=== PATIENT | female | born 1945 | race Caucasian/White ===

== ENCOUNTER 2018-10-01 07:43 | Inpatient (IN) | payer MEDICARE, OTHER ==
[2018-09-24 11:37] LABS: BASOPHILS % (AUTO) 0.3 % (0-1); EOSINOPHILS % (AUTO) 0.2 % (0-6); LYMPHOCYTES # (AUTO) 0.6 X10'3 (1.1-4.8); MEAN CORPUSCULAR HEMOGLOBIN 29.6 PG (27.0-31.0); MEAN CORPUSCULAR HGB CONC 33.7 % (33.0-36.5); MEAN PLATELET VOLUME 7.5 FL (7.4-10.4); MONOCYTES # (AUTO) 0.5 X10'3 (0-0.9); NEUTROPHILS # (AUTO) 3.8 X10'3 (1.8-7.7); NEUTROPHILS % (AUTO) 76.5 % (42-75); PRE OP HEMATOCRIT 38.9 % (35.0-45.0); PRE OP HEMOGLOBIN 13.1 g/dL (12.0-16.0); PRE OP PLATELET COUNT 210 X10'3 (140-440); RED BLOOD COUNT 4.42 X10'6 (4.20-5.60); RED CELL DISTRIBUTION WIDTH 14.4 % (11.5-14.5)
[2018-09-24 11:52] LABS: PRE OP PROTIME 10.4 SECONDS (9.0-12.0)
[2018-09-24 11:54] LABS: CLARITY,URINE CLEAR (Clear); COLOR,URINE YELLOW (Yellow); GLUCOSE, URINE NEGATIVE (Neg); KETONES,URINE NEGATIVE (Neg); LEUKOCYTE ESTERASE ,URINE NEGATIVE (Neg); NITRITES, URINE NEGATIVE (Neg); OCCULT BLOOD,URINE SMALL (Neg); PH,URINE 6.5 (4.8-8.0); PROTEIN,URINE NEGATIVE (Neg); UROBILINOGEN,URINE 0.2 E.U/dL (0.2-1.0)
[2018-09-24 12:00] LABS: UA COLLECTION TYPE CLN CATCH MIDSTREAM
[2018-09-24 12:00] LABS: ALBUMIN 3.8 G/DL (3.4-5.0); ALBUMIN/GLOBULIN RATIO 1.1 (1.1-1.5); ALKALINE PHOSPHATASE 81 IU/L (46-116); BLOOD UREA NITROGEN 11 MG/DL (7-18); BUN/CREATININE RATIO 17.5 (6.6-38.0); CALCIUM 9.2 MG/DL (8.5-10.1); CHLORIDE 96 MMOL/L (99-107); CREATININE 0.63 MG/DL (0.40-0.90); PRE OP ALT 21 U/L (30-65); PRE OP ANION GAP 10 (8-16); PRE OP AST 20 U/L (10-37); PRE OP BILIRUB, TOTAL 1.3 MG/DL (0.0-1.0); PRE OP GLUCOSE 118 MG/DL (70-104); PRE OP POTASSIUM 3.5 MMOL/L (3.4-5.1); PRE OP SODIUM 134 MMOL/L (135-145); TOTAL CARBON DIOXIDE 28.4 MMOL/L (24-32); TOTAL PROTEIN 7.2 G/DL (6.4-8.2); eGFR > 90 ML/MIN
[2018-09-24 12:01] LABS: BACTERIA,URINE FEW /HPF (Neg); SQUAMOUS EPITHELIAL CELL,UR FEW /LPF (FEW)
[2018-09-24 12:02] LABS: WBC,URINE 0-4 /HPF (0-4)
[2018-10-01] VITALS (20 sets, daily range): BP systolic 102–167; BP diastolic 48–82
[~2018-10-01] VITALS: Ht 165.1 cm; Wt 91.7 kg
[~2018-10-01 07:43] MED LIST: ACET-812 PO; ATOR20TA PO; CHOL100046 PO; DOCUMENT DATE & TIME OF BETA-BLOCKER PO ONE; DULO-31 PO; HYDR25TA4 PO; HYDROmorphone 1 mg/ml syringe IV PRN; HYDROmorphone inj. 0.5 MG/0.5 ML DISP.SYRIN IV PRN; LEVO50TA8 PO; METO50TA17 PO; acetaminophen 325mg tablet PO ONE; acetaminophen 325mg tablet PO PRN; bisacodyl 10mg suppository rectal RC PRN; clindamycin 600mg/D5W 50ml 50 ML IV ONE; diphenhydrAMINE 25mg capsule PO PRN; famotidine 20mg tablet PO ONE; gabapentin 300mg capsule PO ONE; magnesium hydroxide 30ml (MOM) UD suspension PO PRN; metoclopramide 5 mg/ml inj IV ONE; oxyCODONE IR 5mg (immed. release) tablet PO PRN; oxyCODONE SR 10mg (sust. release) tab -2 tabs (20mg) PO ONE; ringers solution, lacted 1,000 ML IV SCH; tranexamic acid inj. 1,000 MG in normal saline 100 ML IV ONE; vancomycin inj 1,500 MG in normal saline 300ml IV soln IV ONE
[2018-10-01] MEDS: acetaminophen 325mg tablet PO SCH ×3 (08:00→21:02)
[2018-10-01] MEDS: celeCOXIB 100mg capsule PO ONE ×2 (08:27→08:36)
--- NOTE | 2018-10-01 08:33 | NUR ---
OXYCONTIN HELD DUE TO PT AGE OVER 70
[2018-10-01] MEDS ORDERED: ROPIVAcaine inj 250 MG, ketorolac tromethamine inj. 15 MG, CloNIDine/PF inj 80 MCG, epi... IU ONE ×5 (09:50)
[2018-10-01] MEDS ORDERED: vancomycin 1,000mg inj ONE (09:55)
[2018-10-01] MEDS ORDERED: sevoflurane 250ml liquid IH ONE (10:07)
[2018-10-01] MEDS ORDERED: LIDOcaine 1%/PF 5ML 10 MG/ML VIAL ONE (10:07)
[2018-10-01] MEDS ORDERED: rocuronium 10mg/ml inj IV ONE (10:11)
[2018-10-01] MEDS ORDERED: propofol inj 20 ML IV ONE (10:11)
[2018-10-01] MEDS ORDERED: glycopyrrolate 0.2mg/ml inj ONE ×2 (10:11→12:39)
[2018-10-01] MEDS ORDERED: fentaNYL /PF 50mcg/ml 5ml ampule ONE (10:11)
[2018-10-01] MEDS ORDERED: ROPIVAcaine 0.5% (5mg/ml) 30ml vial ONE (10:56)
[2018-10-01] MEDS ORDERED: ringers solution, lacted 1,000 ML IV SCH (11:03)
[2018-10-01] MEDS ORDERED: ondansetron/PF 4mg/2ml inj IV PRN (11:05)
[2018-10-01] MEDS ORDERED: HYDROmorphone inj. 0.5 MG/0.5 ML DISP.SYRIN IV PRN ×2 (11:05)
[2018-10-01] MEDS ORDERED: morphine 4 MG/ML inj SYRINge IV PRN (11:05)
[2018-10-01] MEDS ORDERED: ondansetron/PF 4mg/2ml inj ONE (11:43)
[2018-10-01] MEDS ORDERED: dexamethasone sod phosphate 4mg/ml inj. ONE (11:43)
--- NOTE | 2018-10-01 12:25 | NUR ---
Received from OR via BED, accompanied by Anesthesiologist DR PANDYA and report given by Anesthesiologist. PT DROWSY, DENIES PAIN, RIGHT KNEE W/DRSG, LEG WRAP, ICE PACK, MAGDA DRAIN, RIGHT THIGH W/ADDUCTOR CANAL CATHETER ATTACHED TO ROPIVACAINE PAIN INFUSION. Addendum: 10/01/18 at 1309 by Jocelyn Slater RN Amended: Links added.
[2018-10-01] MEDS ORDERED: neostigmine methylsulfate 1 MG/ML 10ml vial ONE (12:39)
[2018-10-01] MEDS: ROPIVACAINE HCL/PF PAIN PUMP 400 ML IJ SCH (12:48)
--- NOTE | 2018-10-01 14:05 | NUR ---
Report called to receiving nurse DC AWAD. Transferred via BED, ALL Belongings SENT TO ROOM 4016, PT REMAINS SLEEPY BUT IS APPROPRIATE, PT TRANSFERRED ON TELE #11 IN STABLE CONDITION, SIDE RAILS UP X 2, CALL LIGHT GIVEN, BLL, PTS AT BEDSIDE, NOTIFIED RECEIVING RN OF PTS ARRIVAL. Special Issues communicated to receiving nurse. YES. Addendum: 10/01/18 at 1421 by Jocelyn Slater RN Amended: Links added.
[2018-10-01] MEDS: ketorolac tromethamine 15mg/ml inj. IV SCH ×2 (14:54→20:59)
[2018-10-01] MEDS: gabapentin 300mg capsule PO SCH ×2 (15:00→21:01)
[2018-10-01] MEDS ORDERED: NORMAL SALINE IV ONE (15:30)
[2018-10-01] MEDS ORDERED: TRANEXAMIC ACID IV ONE (15:30)
[2018-10-01] MEDS ORDERED: cefazolin/dext.iso 2gm/100ml 100 ML IV SCH (16:00)
[2018-10-01] MEDS: oxyCODONE IR 5mg (immed. release) tablet PO PRN (16:04)
[2018-10-01] MEDS: potassium cl 20mEq in 1/2 NS 1,000 ML IV SCH ×2 (16:58→22:30)
[2018-10-01] MEDS: clindamycin-Cleocin 900mg/D5W 50 ML IV SCH ×2 (17:09→23:57)
--- NOTE | 2018-10-01 18:29 | NUR ---
Patient in room ORTHO 4016. I have received report from RITESH Schaffer and had the opportunity to ask questions and assume patient care.
[2018-10-01] MEDS: sennosides 8.6mg tablet PO SCH (21:01)
[2018-10-01] MEDS: ascorbic acid 500mg tablet PO SCH (21:01)
[2018-10-01] MEDS: metoprolol tartrate 50mg tablet PO SCH (21:01)
[2018-10-01] MEDS: atorvastatin 20mg tablet PO SCH (21:02)
[2018-10-02 02:00] VITALS: BP 114/62
[2018-10-02] MEDS: ketorolac tromethamine 15mg/ml inj. IV SCH ×3 (02:33→14:00)
[2018-10-02] MEDS: acetaminophen 325mg tablet PO SCH ×4 (02:33→19:57)
[2018-10-02] MEDS: potassium cl 20mEq in 1/2 NS 1,000 ML IV SCH ×3 (03:03→18:50)
[2018-10-02 06:00] VITALS: BP 134/65
[2018-10-02 06:05] LABS: BASOPHILS % (AUTO) 0 % (0-1); EOSINOPHILS # (AUTO) 0.1 X10'3 (0-0.9); EOSINOPHILS % (AUTO) 0.6 % (0-6); HEMATOCRIT 32.7 % (35.0-45.0); HEMOGLOBIN 11.1 g/dl (12.0-16.0); MEAN CORPUSCULAR HEMOGLOBIN 29.9 PG (27.0-31.0); MEAN CORPUSCULAR VOLUME 87.8 FL (78-98); MEAN PLATELET VOLUME 7.7 FL (7.4-10.4); MONOCYTES # (AUTO) 0.6 X10'3 (0-0.9); MONOCYTES % (AUTO) 7.2 % (2-12); NEUTROPHILS # (AUTO) 6.8 X10'3 (1.8-7.7); NEUTROPHILS % (AUTO) 80.2 % (42-75); PLATELET COUNT 186 X10'3 (140-440); RED BLOOD COUNT 3.73 X10'6 (4.20-5.60); RED CELL DISTRIBUTION WIDTH 13.8 % (11.5-14.5); WHITE BLOOD COUNT 8.5 X10'3 (4.5-11.0)
--- NOTE | 2018-10-02 06:27 | NUR ---
Problems reprioritized. Patient report given, questions answered & plan of care reviewed with RITESH Sy.
[2018-10-02 06:29] LABS: ANION GAP 9 (8-16); CHLORIDE 102 MMOL/L (99-107); POTASSIUM 3.3 MMOL/L (3.5-5.1); SODIUM 137 MMOL/L (135-145); TOTAL CARBON DIOXIDE 25.8 MMOL/L (24-32)
[2018-10-02] MEDS: metoprolol tartrate 50mg tablet PO SCH ×2 (08:00→19:59)
[2018-10-02] MEDS: HYDROchlorothiazide 25mg tablet PO SCH (08:26)
[2018-10-02] MEDS: levoTHYROXINE 25mcg tablet PO SCH (08:26)
[2018-10-02] MEDS: vitamin D (cholecalciferol) 1,000 unit tablet PO SCH (08:26)
[2018-10-02] MEDS: duloxetine 30mg CAPSULE.DR PO SCH (08:31)
[2018-10-02] MEDS: ascorbic acid 500mg tablet PO SCH ×2 (08:31→19:57)
[2018-10-02] MEDS: multivitamins, therapeutics tablet PO SCH (08:32)
[2018-10-02] MEDS: gabapentin 300mg capsule PO SCH ×3 (08:32→19:58)
[2018-10-02] MEDS: enoxaparin 40mg/0.4ml syringe SQ SCH (08:33)
[2018-10-02 10:00] VITALS: BP 112/60
--- NOTE | 2018-10-02 12:30 | NUR ---
Joint replacement consult: Pt seen by NISSA for written/verbal high protein ed. NISSA reviewed high protein needs for wound healing, immune strength, high protein foods, and protein supplementation options. NISSA contact information provided in case of further questions. Declines additional proteins at this time. Addendum: 10/02/18 at [address] Amended: Links added.
[2018-10-02 18:00] VITALS: BP 132/67
--- NOTE | 2018-10-02 18:13 | NUR ---
Report to Sandrine AWAD
--- NOTE | 2018-10-02 18:15 | NUR ---
Patient in room ORTHO 4016. I have received report from RITESH Sy and had the opportunity to ask questions and assume patient care.
[2018-10-02] MEDS: atorvastatin 20mg tablet PO SCH (19:58)
[2018-10-02] MEDS: sennosides 8.6mg tablet PO SCH (19:58)
[2018-10-02] MEDS ORDERED: celeCOXIB 100mg capsule PO SCH (20:00)
[2018-10-02] MEDS: ROPIVACAINE HCL/PF PAIN PUMP 400 ML IJ SCH (20:11)
[2018-10-02 22:00] VITALS: BP 119/59
[2018-10-03] MEDS: ROPIVACAINE HCL/PF PAIN PUMP 400 ML IJ SCH (00:21)
[2018-10-03] MEDS: acetaminophen 325mg tablet PO SCH (02:00)
[2018-10-03 06:00] VITALS: BP 124/65
[2018-10-03] MEDS: potassium cl 20mEq in 1/2 NS 1,000 ML IV SCH (06:30)
--- NOTE | 2018-10-03 06:31 | NUR ---
Problems reprioritized. Patient report given, questions answered & plan of care reviewed with RITESH Girard.
[2018-10-03] MEDS: oxyCODONE IR 5mg (immed. release) tablet PO PRN ×2 (07:20→20:23)
--- NOTE | 2018-10-03 07:29 | NUR ---
PT handed me a 325mg tylenol found on floor at patient bedside. communicated to Era AWAD and she disposed. LWSN
[2018-10-03 07:53] LABS: BASOPHILS % (AUTO) 0.3 % (0-1); EOSINOPHILS % (AUTO) 0.8 % (0-6); HEMATOCRIT 31.3 % (35.0-45.0); HEMOGLOBIN 10.6 g/dl (12.0-16.0); LYMPHOCYTES # (AUTO) 1.2 X10'3 (1.1-4.8); LYMPHOCYTES % (AUTO) 19.9 % (21-51); MEAN CORPUSCULAR HEMOGLOBIN 29.8 PG (27.0-31.0); MEAN CORPUSCULAR HGB CONC 33.9 % (33.0-36.5); MEAN CORPUSCULAR VOLUME 87.8 FL (78-98); MEAN PLATELET VOLUME 7.6 FL (7.4-10.4); MONOCYTES # (AUTO) 0.8 X10'3 (0-0.9); MONOCYTES % (AUTO) 13.4 % (2-12); NEUTROPHILS # (AUTO) 3.9 X10'3 (1.8-7.7); NEUTROPHILS % (AUTO) 65.6 % (42-75); PLATELET COUNT 183 X10'3 (140-440); RED BLOOD COUNT 3.56 X10'6 (4.20-5.60); RED CELL DISTRIBUTION WIDTH 14.4 % (11.5-14.5)
[2018-10-03 08:06] LABS: ALANINE AMINOTRANSFERASE 15 U/L (12-78); ALBUMIN 2.5 G/DL (3.4-5.0); ALBUMIN/GLOBULIN RATIO 0.8 (1.1-1.5); ALKALINE PHOSPHATASE 56 IU/L (46-116); ANION GAP 9 (8-16); ASPARTATE AMINO TRANSFERASE 14 U/L (10-37); BILIRUBIN,TOTAL 0.8 MG/DL (0.1-1.0); BLOOD UREA NITROGEN 9 MG/DL (7-18); BUN/CREATININE RATIO 14.8 (6.6-38.0); CALCIUM 8.1 MG/DL (8.5-10.1); CHLORIDE 101 MMOL/L (99-107); CREATININE 0.61 MG/DL (0.40-0.90); GLUCOSE 98 MG/DL (70-104); POTASSIUM 3.1 MMOL/L (3.5-5.1); SODIUM 137 MMOL/L (135-145); TOTAL CARBON DIOXIDE 26.9 MMOL/L (24-32); TOTAL PROTEIN 5.5 G/DL (6.4-8.2); eGFR > 90 ML/MIN
[2018-10-03] MEDS: enoxaparin 40mg/0.4ml syringe SQ SCH (08:14)
[2018-10-03] MEDS: duloxetine 30mg CAPSULE.DR PO SCH (08:17)
[2018-10-03] MEDS: levoTHYROXINE 25mcg tablet PO SCH (08:18)
[2018-10-03] MEDS: vitamin D (cholecalciferol) 1,000 unit tablet PO SCH (08:18)
[2018-10-03] MEDS: ascorbic acid 500mg tablet PO SCH ×2 (08:18→20:17)
[2018-10-03] MEDS: gabapentin 300mg capsule PO SCH ×3 (08:18→20:17)
[2018-10-03] MEDS: multivitamins, therapeutics tablet PO SCH (08:18)
[2018-10-03] MEDS: metoprolol tartrate 50mg tablet PO SCH ×2 (08:38→20:18)
[2018-10-03] MEDS ORDERED: magnesium Cl slow-release 64mg tablet PO PRN (09:05)
[2018-10-03] MEDS ORDERED: magnesium 4gm in 100ml NS 100 ML IV PRN (09:05)
[2018-10-03] MEDS ORDERED: potassium Cl 40MEQ/NS 500ml 500 ML IV PRN ×2 (09:05)
[2018-10-03] MEDS ORDERED: magnesium 2GM in 50ml NS 50 ML IV PRN (09:05)
[2018-10-03] MEDS ORDERED: potassium Cl 20 mEq SR tablet PO PRN (09:05)
[2018-10-03 10:00] VITALS: BP 124/68
[2018-10-03 10:20] LABS: MAGNESIUM 1.6 MG/DL (1.5-2.4); POTASSIUM 3.1 MMOL/L (3.5-5.1)
--- NOTE | 2018-10-03 10:35 | NUR ---
Pt was educated on lovanox injection. She was able to inject herself without complications. She is familiar with the injections since she used them before with her shoulder surgery
[2018-10-03] MEDS: HYDROchlorothiazide 25mg tablet PO SCH (10:39)
[2018-10-03] MEDS: potassium Cl 20 mEq SR tablet PO PRN ×3 (10:41→20:17)
[2018-10-03] MEDS: ondansetron/PF 4mg/2ml inj IV PRN (13:55)
[2018-10-03 18:00] VITALS: BP 126/66
--- NOTE | 2018-10-03 18:00 | NUR ---
Patient in room ORTHO 4016. I have received report from RITESH Girard and had the opportunity to ask questions and assume patient care.
--- NOTE | 2018-10-03 18:57 | NUR ---
I agree with all meds, assessments and interventions performed by Kristina Guerrero, student RN
[2018-10-03] MEDS: sennosides 8.6mg tablet PO SCH (20:17)
[2018-10-03] MEDS: atorvastatin 20mg tablet PO SCH (20:18)
[2018-10-03 22:00] VITALS: BP 112/56
[2018-10-04] MEDS: oxyCODONE IR 5mg (immed. release) tablet PO PRN ×2 (05:15→13:00)
[2018-10-04 06:00] VITALS: BP 125/68
--- NOTE | 2018-10-04 06:00 | NUR ---
Patient in room ORTHO 4016. I have received report from Sandrine AWAD and had the opportunity to ask questions and assume patient care.
--- NOTE | 2018-10-04 06:14 | NUR ---
Problems reprioritized. Patient report given, questions answered & plan of care reviewed with RITESH Ansari.
[2018-10-04 07:46] LABS: BASOPHILS % (AUTO) 0.2 % (0-1); EOSINOPHILS % (AUTO) 0.2 % (0-6); HEMATOCRIT 34.4 % (35.0-45.0); HEMOGLOBIN 11.5 g/dl (12.0-16.0); LYMPHOCYTES # (AUTO) 1.4 X10'3 (1.1-4.8); LYMPHOCYTES % (AUTO) 19.3 % (21-51); MEAN CORPUSCULAR HEMOGLOBIN 29.2 PG (27.0-31.0); MEAN CORPUSCULAR HGB CONC 33.6 % (33.0-36.5); MEAN CORPUSCULAR VOLUME 87.1 FL (78-98); MEAN PLATELET VOLUME 7.8 FL (7.4-10.4); MONOCYTES # (AUTO) 1.2 X10'3 (0-0.9); MONOCYTES % (AUTO) 16.1 % (2-12); NEUTROPHILS # (AUTO) 4.8 X10'3 (1.8-7.7); NEUTROPHILS % (AUTO) 64.2 % (42-75); PLATELET COUNT 248 X10'3 (140-440); RED BLOOD COUNT 3.95 X10'6 (4.20-5.60); RED CELL DISTRIBUTION WIDTH 14.3 % (11.5-14.5); WHITE BLOOD COUNT 7.5 X10'3 (4.5-11.0)
[2018-10-04 07:55] LABS: MAGNESIUM 1.8 MG/DL (1.5-2.4); POTASSIUM 3.4 MMOL/L (3.5-5.1)
[2018-10-04] MEDS: levoTHYROXINE 25mcg tablet PO SCH (08:04)
[2018-10-04] MEDS: ondansetron/PF 4mg/2ml inj IV PRN (08:04)
[2018-10-04] MEDS: gabapentin 300mg capsule PO SCH ×2 (08:04→12:58)
[2018-10-04] MEDS: duloxetine 30mg CAPSULE.DR PO SCH (08:04)
[2018-10-04] MEDS: multivitamins, therapeutics tablet PO SCH (08:04)
[2018-10-04] MEDS: ascorbic acid 500mg tablet PO SCH (08:04)
[2018-10-04] MEDS: enoxaparin 40mg/0.4ml syringe SQ SCH (08:04)
[2018-10-04] MEDS: vitamin D (cholecalciferol) 1,000 unit tablet PO SCH (08:04)
[2018-10-04] MEDS: metoprolol tartrate 50mg tablet PO SCH (08:08)
[2018-10-04] MEDS: HYDROchlorothiazide 25mg tablet PO SCH (08:08)
[2018-10-04 10:00] VITALS: BP 98/47
[2018-10-04] MEDS: potassium Cl 20 mEq SR tablet PO PRN (11:23)
--- NOTE | 2018-10-04 17:32 | NUR ---
Patient stable for transfer to [facility] today. All belongings sent with patient. Patient report called to Candice at [facility]
== END 2018-10-04 14:50 | DRG 470 ==
LOC: PAS IN 07:43 → EDSTATUS 11:30 → ORTHO 4S 14:00
PROVIDERS: ADMIT Orthopaedic Surgery; ATTEND Orthopaedic Surgery
PROC: 5A09357 Assistance with Respiratory Ventilation, Less than 24 Consecutive Hours, Continuous Positive Airway Pressure (ICD-10-PCS; 2018-10-01)
PROC: 3E0T3BZ Introduction of Anesthetic Agent into Peripheral Nerves and Plexi, Percutaneous Approach (ICD-10-PCS; 2018-10-01)
PROC: 0SRC0J9 Replacement of Right Knee Joint with Synthetic Substitute, Cemented, Open Approach (ICD-10-PCS; principal; 2018-10-01 10:07)
PROC: 5A09357 Assistance with Respiratory Ventilation, Less than 24 Consecutive Hours, Continuous Positive Airway Pressure (ICD-10-PCS; 2018-10-03)
PROC: 5A09357 Assistance with Respiratory Ventilation, Less than 24 Consecutive Hours, Continuous Positive Airway Pressure (ICD-10-PCS; 2018-10-04)
DX: M17.11 Unilateral primary osteoarthritis, right knee (principal); D62 Acute posthemorrhagic anemia; E03.9 Hypothyroidism, unspecified; E78.5 Hyperlipidemia, unspecified; Z96.612 Presence of left artificial shoulder joint; G47.30 Sleep apnea, unspecified; I10 Essential (primary) hypertension; M81.0 Age-related osteoporosis without current pathological fracture; F32.9 Major depressive disorder, single episode, unspecified; E66.9 Obesity, unspecified; Z90.12 Acquired absence of left breast and nipple; Z98.51 Tubal ligation status; Z88.0 Allergy status to penicillin; Z88.6 Allergy status to analgesic agent; Z88.8 Allergy status to other drugs, medicaments and biological substances; Z79.899 Other long term (current) drug therapy; Z79.890 Hormone replacement therapy; Z79.82 Long term (current) use of aspirin; Z87.891 Personal history of nicotine dependence; Z85.3 Personal history of malignant neoplasm of breast; Z68.33 Body mass index [BMI] 33.0-33.9, adult
CPT/HCPCS: 36415; 71046; 73560; 80051; 80053; 81001; 82948; 83735; 84132; 84443; 85025; 85610; 85730; 86885; 86900; 86901; 87070; 93005; 97110; 97116; 97162; 97530; A6455; A7000; C1713; C1758; C1776; G0378; J0690; J1100; J1650; J1885; J2001; J2405; J2704; J2710; J2765; J2795; J3010; J3370; J3490; J7030; J7120

== ENCOUNTER 2019-04-21 09:12 | Day surgery (SDC) | payer MEDICARE, OTHER ==
[~2019-04-21] VITALS: Ht 165.1 cm; Wt 98.6 kg
[~2019-04-21 09:12] MED LIST changes: -DOCUMENT DATE & TIME OF BETA-BLOCKER PO ONE; -HYDROmorphone 1 mg/ml syringe IV PRN; -HYDROmorphone inj. 0.5 MG/0.5 ML DISP.SYRIN IV PRN; -acetaminophen 325mg tablet PO ONE; -acetaminophen 325mg tablet PO PRN; -bisacodyl 10mg suppository rectal RC PRN; -clindamycin 600mg/D5W 50ml 50 ML IV ONE; -diphenhydrAMINE 25mg capsule PO PRN; -famotidine 20mg tablet PO ONE; -gabapentin 300mg capsule PO ONE; -magnesium hydroxide 30ml (MOM) UD suspension PO PRN; -metoclopramide 5 mg/ml inj IV ONE; -oxyCODONE IR 5mg (immed. release) tablet PO PRN; -oxyCODONE SR 10mg (sust. release) tab -2 tabs (20mg) PO ONE; -ringers solution, lacted 1,000 ML IV SCH; -tranexamic acid inj. 1,000 MG in normal saline 100 ML IV ONE; -vancomycin inj 1,500 MG in normal saline 300ml IV soln IV ONE
[2019-04-21 09:30] VITALS: BP 135/77
[2019-04-21] MEDS ORDERED: fentaNYL/PF 50MCG/1 ML 2ML syringe ONE (09:36)
[2019-04-21] MEDS ORDERED: MIDAZolam 5mg/5ml vial ONE (09:37)
[2019-04-21 11:23] VITALS: BP 136/64
[2019-04-21 11:33] VITALS: BP 141/69
[2019-04-21 11:43] VITALS: BP 144/69
[2019-04-21 11:53] VITALS: BP 142/72
== END 2019-04-21 12:23 | disposition home or self-care (01) ==
LOC: GI LAB 09:12
PROVIDERS: ATTEND Internal Medicine Gastroenterology
DX: Z09 Encounter for follow-up examination after completed treatment for conditions other than malignant neoplasm (principal); D12.2 Benign neoplasm of ascending colon; K57.30 Diverticulosis of large intestine without perforation or abscess without bleeding; K63.89 Other specified diseases of intestine; K64.8 Other hemorrhoids; M19.90 Unspecified osteoarthritis, unspecified site; Z86.010 Personal history of colon polyps; Z87.891 Personal history of nicotine dependence; Z85.3 Personal history of malignant neoplasm of breast; Z90.12 Acquired absence of left breast and nipple
CPT/HCPCS: 45380; 99153; G0500; J2250; J3010; J7040; 88305; 99152; A4620

== ENCOUNTER 2020-08-05 14:19 | Outpatient (CLI) | payer MEDICARE, OTHER ==
[~2020-08-05] VITALS: Ht 165.1 cm; Wt 91.1 kg
[2020-08-05 17:24] VITALS: BP 135/78
--- NOTE | 2020-08-05 17:26 | NUR ---
May was seen today with her granddaughter to consult with Dr Tijerina. Patient had height, weight and vitals done. Patient completed KCQ12 questionnaire. 5 meter walk test 17.78, 18.53, 18.56 average of 18.29. medication list was reviewed. Patient was boarderline for severe status, so patient was sent for CT Chest to have calcium score. Once CT is reviewed patient will be contacted to determine if she is eligible for TAVR.
== END 2020-08-05 23:59 | disposition home or self-care (01) ==
LOC: TAVR 14:19
PROVIDERS: ATTEND Internal Medicine Cardiovascular Disease
DX: J98.11 Atelectasis (principal); I34.0 Nonrheumatic mitral (valve) insufficiency
CPT/HCPCS: 71250

== ENCOUNTER 2020-09-27 14:12 | Day surgery (SDC) | payer MEDICARE, OTHER ==
[~2020-09-27] VITALS: Ht 165.1 cm; Wt 90.3 kg
[2020-09-27] MEDS ORDERED: normal saline 1000ml 1,000 ML IV SCH (14:50)
[2020-09-27] MEDS ORDERED: MIDAZolam 1mg/ml 10ml vial IV ONE (14:50)
[2020-09-27] MEDS ORDERED: fentaNYL/PF 50MCG/1 ML 2ML syringe IV ONE (14:50)
--- NOTE | 2020-09-27 15:00 | NUR ---
Call to Bridgett pt's daughter, to confirm medications and last time taken. Pt states she is pretty sure she is not taking Eliquis. Bridgett states at last domitila. Eliquis was discontinued and Metoprolol was increased to 100mg twice a day. Call to Dr Flynn's office. Informed of pt D/C of Eliquis. D/C cardioversion for today. Pt to resume Eliquis. Addendum: 09/27/20 at 1928 by Jessi Pratt RN Dr Flynn states. They will call pt at home as well.
[2020-09-27] MEDS ORDERED: ATOR80TA PO (15:19)
== END 2020-09-27 16:00 | disposition home or self-care (01) ==
LOC: SSTAY O 14:12
PROVIDERS: ATTEND Internal Medicine Interventional Cardiology
DX: I48.91 Unspecified atrial fibrillation (principal); Z53.8 Procedure and treatment not carried out for other reasons; I11.9 Hypertensive heart disease without heart failure; E03.9 Hypothyroidism, unspecified; I35.0 Nonrheumatic aortic (valve) stenosis; Z85.3 Personal history of malignant neoplasm of breast; Z86.73 Personal history of transient ischemic attack (TIA), and cerebral infarction without residual deficits; Z79.899 Other long term (current) drug therapy; Z79.01 Long term (current) use of anticoagulants; I27.20 Pulmonary hypertension, unspecified; Z88.8 Allergy status to other drugs, medicaments and biological substances; Z88.0 Allergy status to penicillin
CPT/HCPCS: 93005

== ENCOUNTER 2020-11-02 10:07 | Day surgery (SDC) | payer MEDICARE, OTHER ==
[2020-10-27 17:17] LABS: ALBUMIN 3.9 G/DL (3.4-5.0); ANION GAP 10 (8-16); BLOOD UREA NITROGEN 16 MG/DL (7-18); BUN/CREATININE RATIO 18.4 (6.6-38.0); CALCIUM 9.6 MG/DL (8.5-10.1); CHLORIDE 107 MMOL/L (99-107); CREATININE 0.87 MG/DL (0.40-0.90); GLUCOSE 103 MG/DL (70-104); POTASSIUM 3.6 MMOL/L (3.5-5.1); SODIUM 144 MMOL/L (135-145); TOTAL CARBON DIOXIDE 27.1 MMOL/L (24-32); eGFR 63 ML/MIN
[2020-10-27 17:19] LABS: PARTIAL THROMBOPLASTIN TIME 25 SECONDS (22-32)
[2020-10-27 17:31] LABS: BASOPHILS % (AUTO) 0.3 % (0-1); EOSINOPHILS # (AUTO) 0.4 X10'3 (0-0.9); EOSINOPHILS % (AUTO) 5.2 % (0-6); HEMATOCRIT 38.4 % (35.0-45.0); HEMOGLOBIN 12.6 g/dl (12.0-16.0); LYMPHOCYTES % (AUTO) 28.5 % (21-51); MEAN CORPUSCULAR HEMOGLOBIN 28.7 PG (27.0-31.0); MEAN CORPUSCULAR HGB CONC 32.8 g/dL (33.0-36.5); MEAN CORPUSCULAR VOLUME 87.5 FL (78-98); MONOCYTES # (AUTO) 0.4 X10'3 (0-0.9); MONOCYTES % (AUTO) 6.1 % (2-12); NEUTROPHILS # (AUTO) 4.2 X10'3 (1.8-7.7); NEUTROPHILS % (AUTO) 59.9 % (42-75); PLATELET COUNT 241 X10'3 (140-440); RED BLOOD COUNT 4.39 X10'6 (4.20-5.60); RED CELL DISTRIBUTION WIDTH 16.1 % (11.5-14.5)
[2020-11-02] VITALS (11 sets, daily range): BP systolic 108–142; BP diastolic 64–98
[~2020-11-02] VITALS: Ht 165.1 cm; Wt 90.0 kg
[~2020-11-02 10:07] MED LIST changes: -ATOR20TA PO; +ATOR80TA PO
[2020-11-02] MEDS ORDERED: APIX5TAB3 PO (10:40)
[2020-11-02] MEDS ORDERED: fentaNYL/PF 50MCG/1 ML 2ML syringe IV ONE (11:40)
[2020-11-02] MEDS ORDERED: normal saline 1000ml 1,000 ML IV SCH (11:40)
[2020-11-02] MEDS ORDERED: MIDAZolam 1mg/ml 10ml vial IV ONE (11:40)
== END 2020-11-02 15:15 | disposition home or self-care (01) ==
LOC: SSTAY O 10:07
PROVIDERS: ATTEND Internal Medicine Interventional Cardiology
DX: I48.91 Unspecified atrial fibrillation (principal); I11.9 Hypertensive heart disease without heart failure; I35.0 Nonrheumatic aortic (valve) stenosis; E03.9 Hypothyroidism, unspecified; I27.20 Pulmonary hypertension, unspecified; Z88.8 Allergy status to other drugs, medicaments and biological substances; Z88.0 Allergy status to penicillin; Z86.73 Personal history of transient ischemic attack (TIA), and cerebral infarction without residual deficits; Z79.01 Long term (current) use of anticoagulants; Z79.899 Other long term (current) drug therapy; Z85.3 Personal history of malignant neoplasm of breast; Z98.890 Other specified postprocedural states
CPT/HCPCS: 36415; 80048; 85025; 85610; 85730; 92960; 93005; 94760; 94799; J2250; J3010; J7030